=== PATIENT | female | born 1990 | race Caucasian/White ===

== ENCOUNTER 2016-12-16 11:34 | Emergency (ER) | payer OTHER ==
[2016-12-16 12:29] VITALS: BP 106/67
[2016-12-16] MEDS ORDERED: Acetaminophen TAB* 325 MG PO ONE (13:13)
--- NOTE | 2016-12-16 13:22 | UC ---
Throat Pain/Nasal Micah HPI - HPI Summary HPI Summary: complaint of sore throat and right ear pain that started yesterday nasal congestion fever of 102.5 last night denies coughing muscle achiness feels nauseated , but able to drink fluids, denies diarrhea took some tylenol with some reloief of fever hasn't needed to iuse albuterol inhaler close contact with strep - History of Current Complaint Chief Complaint: UCRespiratory Stated Complaint: FEVER/RIGHT EAR Time Seen by Provider: 12/16/16 13:14 Hx Obtained From: Patient, Access Service Representative Hx Last Menstrual Period: 11/15/16 - Allergies/Home Medications Allergies/Adverse Reactions: Allergies Allergy/AdvReac Type Severity Reaction Status Date / Time Penicillins Allergy Intermediate Rash Verified 12/16/16 12:28 PMH/Surg Hx/FS Hx/Imm Hx Previously Healthy: Yes Endocrine History Of: Denies: Diabetes, Thyroid Disease Cardiovascular History Of: Denies: Cardiac Disorders, Hypertension Respiratory History Of: Reports: Asthma Denies: COPD GI/ History Of: Denies: Ulcer - Surgical History Surgical History: None - Family History Known Family History: Positive: None Negative: Cardiac Disease, Hypertension, Diabetes - Social History Occupation: Employed Full-time Lives: With Family Alcohol Use: Occasionally Substance Use Type: None Smoking Status (MU): Heavy Every Day Tobacco Smoker Type: Cigarettes Amount Used/How Often: 1/2 PPD Have You Smoked in the Last Year: Yes Cessation Counseling: Patient Advised to Stop Review of Systems Constitutional: Fever, Chills Skin: Bruising Eyes: Negative ENT: Sore Throat, Ear Ache, Nasal Discharge Respiratory: Negative Cardiovascular: Negative Gastrointestinal: Negative Genitourinary: Negative Motor: Negative Neurovascular: Negative Musculoskeletal: Negative Neurological: Negative Psychological: Negative All Other Systems Reviewed And Are Negative: Yes Physical Exam Triage Information Reviewed: Yes Appearance: No Pain Distress, Well-Nourished, Ill-Appearing Vital Signs: Initial Vital Signs Temp 98.1 F 12/16/16 12:26 Pulse 91 12/16/16 12:26 Resp 14 12/16/16 12:26 BP 106/67 12/16/16 12:26 Pulse Ox 99 12/16/16 12:26 Vital Signs Reviewed: Yes Eyes: Positive: Conjunctiva Clear ENT: Positive: Pharyngeal erythema, Nasal congestion, TMs normal, Tonsillar swelling, Tonsillar exudate Neck: Positive: No Lymphadenopathy Respiratory: Positive: Lungs clear, Normal breath sounds, No respiratory distress Cardiovascular: Positive: RRR, No Murmur, Pulses Normal Abdomen Description: Positive: Nontender, Soft Bowel Sounds: Positive: Present Musculoskeletal: Positive: No Edema Neurological: Positive: Alert Psychological Exam: Normal Skin Exam: Normal Throat Pain/Nasal Course/Dx - Differential Dx/Diagnosis Differential Diagnosis/HQI/PQRI: Influenza, Pharyngitis, Sinusitis, Tonsillitis , URI Provider Diagnoses: strep pharyngitis Discharge - Discharge Plan Condition: Stable Disposition: HOME Prescriptions: Clindamycin Cap(NF) [Cleocin 300 mg Cap(NF)] 300 mg PO TID #30 cap Patient Education Materials: Strep Throat (ED) Forms: *Work Release Referrals: Michel Ling MD [Primary Care Provider] - Additional Instructions: Start antibiotic as directed Increase fluids and rest Take acetaminophen or ibuprofen for fever or pain Please review your discharge instructions. If your symptoms do not improve please call your primary care provider or return to urgent care
== END 2016-12-16 14:00 | disposition home or self-care (01) ==
LOC: UCCORT 11:34
DX: J02.0 Streptococcal pharyngitis (principal); F17.210 Nicotine dependence, cigarettes, uncomplicated; Z88.0 Allergy status to penicillin
CPT/HCPCS: 87651; 99212; A9270-GY; G0463

== ENCOUNTER 2018-07-29 11:17 | Emergency (ER) | payer OTHER ==
[2018-07-29 12:14] VITALS: BP 120/62
[2018-07-29] MEDS ORDERED: Tetan/Diph/Pertus SYR(Tdap)* 0.5 ML SYR(BOOSTRIX) use SYR IM ONE (12:21)
[2018-07-29] MEDS ORDERED: Lidocaine 4% TOPICAL* 50 ML TOP.SOLN TOPICAL ONE (12:23)
--- NOTE | 2018-07-29 12:27 | UC ---
Laceration HPI - HPI Summary HPI Summary: States she is here because she has 'a paper cut' in her thumb while opening a can today and would like a tetanus vaccine since she thinks the last dose was 11 years ago. Denies pain, bleeding chills fever - History Of Current Complaint Chief Complaint: SANGEETHAkin Stated Complaint: LEFT THUMB WOUND Time Seen by Provider: 07/29/18 12:07 Hx Obtained From: Patient Hx Last Menstrual Period: 11/15/16 Laceration Location: Finger Mechanism Of Injury: Sharp Trauma Onset/Duration: Sudden Onset, Lasting Hours Pain Intensity: 0 Hands: 1 - superficial linear cut on tuft of left thumb no bleeding, length is 0.4cm - Allergies/Home Medications Allergies/Adverse Reactions: Allergies Allergy/AdvReac Type Severity Reaction Status Date / Time CILLINS Allergy Rash Uncoded 07/29/18 12:11 Home Medications: Home Medications Iud 07/29/18 [History] PMH/Surg Hx/FS Hx/Imm Hx Previously Healthy: Yes - Surgical History Surgical History: Yes Surgery Procedure, Year, and Place: WISDOM TEETH EXTRACTION - Family History Known Family History: Positive: None, Diabetes Negative: Cardiac Disease, Hypertension - Social History Alcohol Use: Occasionally Substance Use Type: None Smoking Status (MU): Heavy Every Day Tobacco Smoker Type: Cigarettes Amount Used/How Often: 1/2 PPD Have You Smoked in the Last Year: Yes Review of Systems Constitutional: Negative Skin: Other - cut All Other Systems Reviewed And Are Negative: Yes Physical Exam Triage Information Reviewed: Yes Appearance: Well-Appearing, No Pain Distress, Well-Nourished Vital Signs: Initial Vital Signs Temp 98.7 F 07/29/18 12:09 Pulse 85 07/29/18 12:09 Resp 17 07/29/18 12:09 BP 120/62 07/29/18 12:09 Pulse Ox 99 07/29/18 12:09 Vital Signs Reviewed: Yes Eyes: Positive: Conjunctiva Clear ENT: Positive: Hearing grossly normal Neck: Positive: Supple Respiratory: Positive: Chest non-tender Cardiovascular: Positive: Pulses Normal, Brisk Capillary Refill Abdomen Description: Positive: Nontender Bowel Sounds: Positive: Present Musculoskeletal: Positive: Strength Intact, ROM Intact, No Edema Laceration Course/Dx - Course/Dx Course Of Treatment: very superficial small cut of left thumb with a clean can, does not need repair, patient requests tetanus vaccine which was administered at . f/u with PCP routine - Differential Dx - Laceration/Wound Provider Diagnoses: Vaccination with Tetanus vaccine. left thumb cut Discharge - Sign-Out/Discharge Documenting (check all that apply): Patient Departure All imaging exams completed and their final reports reviewed: No Studies - Discharge Plan Condition: Stable Disposition: HOME Patient Education Materials: Tdap and Td Vaccines for Adults (ED) Referrals: Wing Thayer MD [Primary Care Provider] - - Billing Disposition and Condition Condition: STABLE Disposition: Home
== END 2018-07-29 12:44 | disposition home or self-care (01) ==
LOC: UCCORT 11:17
DX: F17.210 Nicotine dependence, cigarettes, uncomplicated (principal); S61.012A Laceration without foreign body of left thumb without damage to nail, initial encounter; W26.8XXA Contact with other sharp object(s), not elsewhere classified, initial encounter; Y93.9 Activity, unspecified; Y92.9 Unspecified place or not applicable; Z23 Encounter for immunization
CPT/HCPCS: 90471; 90715; 99212; G0463

== ENCOUNTER 2019-08-19 18:30 | Emergency (ER) | payer BC, OTHER ==
[2019-08-19 18:52] VITALS: BP 122/58
--- NOTE | 2019-08-19 19:33 | UC ---
Laceration HPI - HPI Summary HPI Summary: 29-year-old female presents with laceration to her left wrist that occurred and about 5:45 PM. Patient states she was locked out of her house and was attempting to open a window when she accidentally pushed her hand through a glass causing the laceration. Bleeding was controlled with direct pressure prior to arrival. States tetanus is up-to-date. Denies any decreased range of motion to the wrist or numbness or tingling to the hand or fingers. - History Of Current Complaint Chief Complaint: UCLaceration Stated Complaint: WRIST LACERATION Time Seen by Provider: 08/19/19 19:15 Hx Obtained From: Patient Hx Last Menstrual Period: HAS AN IUD. DOES NOT HAVE REG PERIODS Pain Intensity: 7 - Allergies/Home Medications Allergies/Adverse Reactions: Allergies Allergy/AdvReac Type Severity Reaction Status Date / Time Sulfa (Sulfonamide Allergy Unknown Itching Verified 08/19/19 18:45 Antibiotics) CILLINS Allergy Rash Uncoded 08/19/19 18:45 Home Medications: Home Medications Levonorgestrel (Iud) [Mirena IUD] 20 mcg IU 08/19/19 [History] Naproxen Sodium [Aleve] 440 mg PO PRN 08/19/19 [History] PMH/Surg Hx/FS Hx/Imm Hx Previously Healthy: Yes - Denies significant PMH - Surgical History Surgical History: Yes Surgery Procedure, Year, and Place: WISDOM TEETH EXTRACTION - Family History Known Family History: Positive: Diabetes - Social History Occupation: Employed Full-time Lives: With Family Alcohol Use: Occasionally Substance Use Type: None Smoking Status (MU): Heavy Every Day Tobacco Smoker Type: Cigarettes Amount Used/How Often: 1/2 PPD Have You Smoked in the Last Year: Yes - Immunization History Most Recent Tetanus Shot: 08/02/18 Review of Systems All Other Systems Reviewed And Are Negative: Yes Constitutional: Positive: Negative Skin: Positive: Other - See HPI Respiratory: Positive: Negative Cardiovascular: Positive: Negative Gastrointestinal: Positive: Negative Genitourinary: Positive: Negative Motor: Negative: Weakness Neurovascular: Negative: Decreased Sensation Musculoskeletal: Negative: Decreased ROM Neurological: Positive: Negative Is Patient Immunocompromised?: No Physical Exam - Summary Physical Exam Summary: GENERAL APPEARANCE: Well developed, well nourished, alert and cooperative, and appears to be in no acute distress. CARDIAC: Normal S1 and S2. No S3, S4 or murmurs. Rhythm is regular. There is no peripheral edema, cyanosis or pallor. Extremities are warm and well perfused. Capillary refill is less than 2 seconds. Peripheral pulses intact. LUNGS: Clear to auscultation without rales, rhonchi, wheezing or diminished breath sounds. ABDOMEN: Positive bowel sounds. Soft, nondistended, nontender. No guarding or rebound. No masses or hepatosplenomegally. MUSKULOSKELETAL: ROM intact to all extremities. No joint erythema or tenderness. Normal muscular development. Normal gait. EXTREMITIES: Superficial linear laceration to the radial aspect of her right wrist with bleeding controlled. Circulation and sensation intact. SKIN: Skin normal color, texture and turgor. Triage Information Reviewed: Yes Vital Signs: Initial Vital Signs Temp 98 F 08/19/19 18:47 Pulse 98 08/19/19 18:47 Resp 18 08/19/19 18:47 BP 122/58 08/19/19 18:47 Pulse Ox 99 08/19/19 18:47 Vital Signs Reviewed: Yes Images Hands: 1 - Superficial linear laceration with bleeding controlled Procedures - Procedure Summary Procedure Summary: Procedure note: Laceration repair right wrist Informed consent was obtained before procedure started and the appropriate timeout was taken. The wound was copiously irrigated with normal saline by the RN prior to repair. The area was prepped in the usual sterile fashion. Local anesthesia was achieved using 1 ml of lidocaine 1% without epinephrine. The wound was thoroughly explored and no foreign body was noted. The wound margins were brought into good alignment and 3 interrupted sutures were placed using 5- 0 Ethilon. Total length of wound after repair was 1.3 cm. Estimated blood loss was minimal. The patient tolerated the procedure well without complications. Patient is to follow up in 10 days for suture removal and evaluation of the laceration. Laceration Course/Dx - Course/Dx Course Of Treatment: 29-year-old female presents with laceration to her left wrist that occurred and about 5:45 PM. Patient states she was locked out of her house and was attempting to open a window when she accidentally pushed her hand through a glass causing the laceration. Bleeding was controlled with direct pressure prior to arrival. States tetanus is up-to-date. Denies any decreased range of motion to the wrist or numbness or tingling to the hand or fingers. Afebrile. Vital signs stable. Patient had a superficial linear laceration to the radial aspect of her right wrist with bleeding controlled. The wound was thoroughly irrigated by the RN with normal saline prior to wound closure. Informed consent was obtained and appropriate time out was performed. After achieving good anesthesia I thoroughly explored the wound and no foreign bodies were noted. The wound was closed with a total of 3 interrupted sutures using 5-0 Ethilon. She is to return here or follow up with her primary care provider in 10 days for suture removal. Patient tolerated the procedure well. A dressing was applied by the RN. Wound care, anticipatory guidance, and warning symptoms were reviewed with the patient. Verbalizes understanding and agrees with plan of care. - Differential Dx - Laceration/Wound Differental Diagnoses: Laceration, Tendon Laceration - Diagnosis Provider Diagnosis: Laceration of right wrist Discharge ED - Sign-Out/Discharge Documenting (check all that apply): Patient Departure All imaging exams completed and their final reports reviewed: No Studies - Discharge Plan Condition: Stable Disposition: HOME Patient Education Materials: Care For Your Stitches (ED), Laceration (ED) Referrals: Wing Thayer MD [Primary Care Provider] - Additional Instructions: Leave the dressing that was applied in the clinic in place until tomorrow. Be sure to keep it clean and dry. Starting tomorrow you may remove the dressing and shower and wash hands as normal. Do not submerge the wrist under water to prevent infection. Clean the wound with a mild soap and water at least once a day. Apply some antibiotic ointment and cover with a bandage. This should be changed at least once a day or any time the dressing becomes wet or soiled. Use acetaminophen (Tylenol) or ibuprofen (Advil, Motrin) according to directions as needed for pain. Sutures will need to be removed in 10 days. You may return here or with your primary care provider to have this done. Watch for signs of infection including fever greater than 100.5 F, severe pain not managed with pain medication, redness that spreads, swelling of the hand/ fingers, or pus draining from the wound. Seek immediate medical attention should any of these occur. - Billing Disposition and Condition Condition: STABLE Disposition: Home
[2019-08-19] MEDS ORDERED: Lidocaine 1% MPF ** 5 ML VIAL INJ ONE (19:40)
== END 2019-08-19 20:16 | disposition home or self-care (01) ==
LOC: UCCORT 18:30
DX: S61.512A Laceration without foreign body of left wrist, initial encounter (principal); F17.210 Nicotine dependence, cigarettes, uncomplicated; Z88.2 Allergy status to sulfonamides; Z88.0 Allergy status to penicillin; W25.XXXA Contact with sharp glass, initial encounter; Y92.9 Unspecified place or not applicable
CPT/HCPCS: 12001; 99211; G0463